=== PATIENT | male | born 1985 | race Caucasian/White ===

== ENCOUNTER → 2017-04-26 | Day surgery (SDC) | payer OTHER ==
[~2017-04-26] MED LIST: BACITRACIN 50,000 UNIT VIAL ONE; BUPIVACAINE HCL 0.5% INJ 30 ML VIAL INJ ONE; CEFAZOLIN SOD 2 GM/D5W 50ML 50 ML IV ONE; FENTANYL CITRATE/PF 100MCG/2 ML INJ ONE; LIDOCAINE HCL 2% LOCAL INJ 5 ML SDV VIAL INJ ONE; MIDAZOLAM HCL 2 MG/2 ML VIAL ONE; PROPOFOL IV EMULSION 10 MG/ML 20 ML VIAL ONE; TYLENOL WITH C1 EACH PO
--- NOTE | 2017-04-29 15:19 | Operative Report ---
DATE OF PROCEDURE: April 26, 2017 PREOPERATIVE DIAGNOSIS: Symptomatic hardware, right ankle. POSTOPERATIVE DIAGNOSIS: Symptomatic hardware, right ankle. PROCEDURE PERFORMED: Removal of right ankle syndesmosis screw. PLANT SPECIALIST: None. ANESTHESIA: Monitored anesthesia care. IV FLUIDS: Per the anesthesia record. DESCRIPTION OF PROCEDURE: Mr. Du was taken to the operating room and placed in the supine position on the operating room table. Following induction of general anesthesia as well as endotracheal intubation, the patient's right lower extremity was examined under anesthesia. He was found to have surgical incisions consistent with a previous open reduction and internal fixation of a right ankle fracture. Fluoroscopic evaluation of the ankle fracture demonstrated retained hardware and a healed injury. There was a single screw traversing the ankle at the level of the syndesmosis. The patient's lower extremity was prepped and draped in the standard surgical fashion. The single syndesmosis screw was localized using fluoroscopy. An incision was created directly over the screw. Blunt dissection was used to deepen the incision to the level of the screw itself, and the screw and washer were removed without difficulty. Repeat fluoroscopic evaluation of the ankle joint revealed that the screw had been removed. There was no change in alignment of the ankle fracture or the relationship between the tibia and fibula at the level of the syndesmosis. The wound was copiously irrigated. It was closed in a multilayer fashion. Sterile dressings were applied. The patient was returned to his tib-fib orthosis, awakened and taken to the postanesthesia care unit in stable condition. Job#: [id number]
== END | disposition home or self-care (01) ==
LOC: OR 11:32
PROVIDERS: ATTEND Specialist
DX: Z45.89 Encounter for adjustment and management of other implanted devices (principal); N20.0 Calculus of kidney; F17.210 Nicotine dependence, cigarettes, uncomplicated
CPT/HCPCS: 20680; 76000; J2001; J2250

== ENCOUNTER 2017-05-31 07:51 | Outpatient (RCR) | payer OTHER ==
[~2017-05-31 07:51] MED LIST changes: -BACITRACIN 50,000 UNIT VIAL ONE; -BUPIVACAINE HCL 0.5% INJ 30 ML VIAL INJ ONE; -CEFAZOLIN SOD 2 GM/D5W 50ML 50 ML IV ONE; -FENTANYL CITRATE/PF 100MCG/2 ML INJ ONE; -LIDOCAINE HCL 2% LOCAL INJ 5 ML SDV VIAL INJ ONE; -MIDAZOLAM HCL 2 MG/2 ML VIAL ONE; -PROPOFOL IV EMULSION 10 MG/ML 20 ML VIAL ONE
== END 2017-06-05 ==
LOC: PT 07:51
PROVIDERS: ATTEND Specialist
DX: S82.891A Other fracture of right lower leg, initial encounter for closed fracture (principal); M25.571 Pain in right ankle and joints of right foot; M25.671 Stiffness of right ankle, not elsewhere classified; R26.2 Difficulty in walking, not elsewhere classified; M62.81 Muscle weakness (generalized)